=== PATIENT | male | born 1955 | race Caucasian/White ===

== ENCOUNTER 2019-09-28 12:19 | Inpatient (IN) | payer BC ==
[2019-09-28] MEDS ORDERED: Piperacillin/Tazobactam 4.5 GM VIAL ONE (13:27)
[2019-09-28 13:37] LABS: Lactic Acid 2.7 mmol/L (0.5-2.2)
[2019-09-28] MEDS ORDERED: Morphine 4 MG/ML VIAL ONE (14:08)
[2019-09-28] MEDS ORDERED: Ondansetron PF 4 MG/2 ML Vial ONE (14:08)
[2019-09-28] MEDS ORDERED: Acetaminophen 325 MG TAB PO PRN (15:55)
[2019-09-28] MEDS ORDERED: Ondansetron PF 4 MG/2 ML Vial IVP PRN ×2 (15:55→17:02)
[2019-09-28] MEDS ORDERED: Ondansetron ODT 4 MG TAB SL PRN (15:55)
[2019-09-28] MEDS ORDERED: Lactated Ringer's 1,000 ML IV SCH (16:00)
[2019-09-28 16:03] VITALS: BMI 32.4
[2019-09-28] MEDS ORDERED: Morphine 4 MG/ML VIAL SLOW IVP PRN (16:59)
--- NOTE | 2019-09-28 17:51 | HP ---
CHIEF COMPLAINT: Fever. HISTORY OF PRESENT ILLNESS: This is a 64-year-old male with history of tongue cancer treated with chemotherapy and radiation, esophageal cancer, hypothyroidism, GERD, peripheral vascular disease with few different surgeries on his legs, who presents to the [facility] Emergency Room yesterday with complaint of fevers, chills, abdominal and chest pain, nausea and vomiting. The patient reports that this was attributed to the flu-like illness, his flu test was negative and he was sent home. The symptoms continued overnight and he re-presented there today. He reports first onset was the night of September 23, where he had a fever to 101.3, associated with vomiting, fevers, and pain on his right side. He states that by the next day, it had resolved and had 2 days without any symptoms and then return of symptoms two nights ago. This time it has been persistent. His fevers have been up to 103 Fahrenheit. Today, he notes the onset of coughing and has had 2 episodes of small amounts of hemoptysis. He has had chest pain and difficulty breathing and last night, felt like he could not take a deep breath. He denies any prior history of this. Denies any travel. He has been taking ibuprofen at home to help with the fevers and body aches. The only other note is his urine has been dark and he had poor p.o. intake. In the emergency room at [facility] today, the patient was evaluated, had a lactic acid of 3.9, underwent a CT scan which by report shows a right lower lobe pneumonia, but no other abnormality in the abdomen or pelvis, this was based on CT abdomen and pelvis with contrast. He also had an ultrasound which shows a single small gallstone. There he received lactated Ringer's 2.6 L, morphine 4 mg, Zofran 4 mg, vancomycin 1.25 g, and transferred to this facility for further care. ALLERGIES: NO KNOWN DRUG ALLERGIES. CURRENT MEDICATIONS: Reconciled with pictures on patient's 's phone; 1. Levothyroxine 75 mcg daily. 2. Pantoprazole 40 mg b.i.d. PAST MEDICAL HISTORY: 1. Esophageal cancer treated by recurrent scrapings per the patient and his . 2. Cancer of the base of his tongue, treated with chemotherapy and radiation. 3. Peripheral vascular disease with surgery. 4. Anemia. 5. Hypothyroidism. PAST SURGICAL HISTORY: 1. Left femur fracture repair. 2. Esophageal recurrent scrapings for history of cancer. 3. Bypass to his legs followed by some other more advanced surgery for the peripheral vascular disease. SOCIAL HISTORY: The patient quit tobacco 25 years ago. Denies alcohol. Lives with his who is his surrogate decision maker and he is a full code. FAMILY HISTORY: Significant for a brother who has cancer, sister with tongue cancer, and a brother with throat cancer. REVIEW OF SYSTEMS: Positive for cough, chest pain, difficulty breathing, and other symptoms as noted above. Negative for any changes of skin. All remaining review of systems is reviewed and negative. PHYSICAL EXAMINATION: VITAL SIGNS: Blood pressure 106/62, temperature 103, pulse 112, respirations 24 , and saturation 92% on room air. GENERAL: Awake, alert, responsive, in no apparent distress. Does appear uncomfortable. Able to speak in full sentences. HEENT: Pupils are equal and round. No scleral icterus. Oral mucosa is pink and moist. NECK: Supple and nontender. LYMPHATICS: The patient has firmness along the left anterior cervical area that he reports is from radiation therapy. Unable to adequately assess for lymphadenopathy, no palpable lymphadenopathy on the right anterior cervical area. LUNGS: Decreased breath sounds at the bases, right greater than left. No audible wheezing or rhonchi. HEART: Normal S1, S2. Regular rate and rhythm. No significant murmur. ABDOMEN: Soft with present bowel sounds. Nontender. Nondistended. EXTREMITIES: No clubbing, cyanosis, or edema. SKIN: No visible rashes. NEURO: No gross deficits. PSYCH: Appears euthymic. VASCULAR: 2+ radial pulses. LABORATORY DATA: Reviewed from [facility], urinalysis shows trace blood, negative leukocyte esterase, negative nitrite, present protein. Metabolic panel; 134, 4.2, 99, 25, 25, 1.41, and 103. Calcium 9.7. Total bilirubin 3.2, alkaline phosphatase 104, AST 22, ALT 24, total protein 7.1 , albumin 3.8. CBC; 16.1, 14.4, 44.4, 202 with 78% neutrophils, 19% bands. Troponin negative. INR 1.4. CT abdomen and pelvis shows a right lower lobe pneumonia. This is with contrast right lower lobe pneumonia, otherwise no acute abnormality. Ultrasound shows a single small gallstone toward the gallbladder neck region, nonvisualization of the pancreas, no gallbladder wall thickening or pericholecystic fluid. IMPRESSION: 1. Sepsis secondary to pneumonia. 2. Cholelithiasis, uncertain if the patient is symptomatic from this. No evidence of acute cholecystitis. 3. Hemoptysis secondary to #1, by history, small amount. 4. History of tongue cancer, status post treatment, history of esophageal cancer status post treatment. 5. Peripheral vascular disease, asymptomatic. 6. Gastroesophageal reflux disease. 7. Hypothyroidism. PLAN: 1. Admission to the hospital. 2. We will continue IV fluids for now. Monitor intake and urine output. 3. Continuing broad-spectrum antibiotics, presumed that this community acquired narrow based on response to treatment. We will continue the vancomycin started in [place] with pharmacy to dose, Levaquin once daily, and Zosyn for pneumonia dosing. 4. Manage pain as well as fever. 5. Continue the levothyroxine at the current dose as well as b.i.d. PPI. 6. DVT prophylaxis with SCDs. Holding any pharmacologic DVT prophylaxis given the report of hemoptysis. 7. GI prophylaxis not indicated. The patient is already on a PPI. 8. Code status is full. Surrogate decision maker is the patient's . 9. The patient is at high risk given age, comorbidities, and current presentation. 10. Reviewed the plan of care with patient and his . No questions or further needs at the end of evaluation. Job ID: [id number] MTDD
[2019-09-28] MEDS: Piperacillin/Tazobactam 4.5 GM in Sodium Chloride 0.9% 100 ML IVPB SCH (18:41)
[2019-09-28] MEDS: Sodium Chloride 0.9% 1,000 ML IV SCH (18:41)
[2019-09-28] MEDS: HYDROcodone/Acetaminophen 5/325 mg Tablet PO PRN (20:33)
[2019-09-28] MEDS ORDERED: Vancomycin 1.5 GRAM/300 ML BAG 1.5 GM in Premix Bag 1 BAG IVPB SCH (21:00)
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
[2019-09-29] MEDS: Piperacillin/Tazobactam 4.5 GM in Sodium Chloride 0.9% 100 ML IVPB SCH ×4 (00:38→19:35)
[2019-09-29] MEDS: Vancomycin HCl 1 GM in Premix Bag 1 BAG IVPB SCH ×2 (00:39→13:11)
[2019-09-29] MEDS: Levothyroxine Sodium 75 MCG TAB PO SCH (05:15)
[2019-09-29] MEDS: Sodium Chloride 0.9% 1,000 ML IV SCH ×2 (05:15→19:35)
[2019-09-29 05:59] LABS: Phosphorus 2.5 mg/dL (2.3-4.7)
[2019-09-29 06:01] LABS: Anion Gap 11 mmol/L (10-20); BUN (Urea Nitrogen) 18 mg/dL (8.4-25.7); Calc. Creatinine Clearance 76 mL/min (70-130); Calcium 8.6 mg/dL (7.8-10.44); Carbon Dioxide 25 mmol/L (23-31); Chloride 102 mmol/L (98-107); Estimated GFR-MDRD 57; Glucose 105 mg/dL (80-115); Magnesium 1.9 mg/dL (1.6-2.6); Potassium 3.7 mmol/L (3.5-5.1); Sodium 134 mmol/L (136-145)
[2019-09-29 06:18] LABS: Band 21 % (5-11); Lymphocytes 8 % (21-51); MDiff Complete? YES; Mean Corpuscular HGB CONC 31.7 g/dL (32.0-36.0); Mean Corpuscular Hemoglobin 26.3 pg (27.0-31.0); Mean Platelet Volume 8.1 fL (7.4-10.4); Monocytes 4 % (0-10); Neutrophil 66 % (42-75); Platelet Count 146 thou/uL (130-400); RBC Distribution Width 12.8 % (11.5-14.5); Reactive Lymphocytes 1 % (0-10); Red Blood Cell (RBC) Count 4.56 mill/uL (4.70-6.10); White Blood Cell (WBC) Count 11.6 thou/uL (4.8-10.8)
[2019-09-29] MEDS: Acetaminophen 500 MG TAB PO PRN ×2 (06:29→16:39)
--- NOTE | 2019-09-29 09:00 | CT ---
CT CHEST WITH CONTRAST: History: Right lower lobe pneumonia. Comparison: None. Findings: Within the posterior segment right upper lobe is a spiculated nodule with peripheral pleural thickeni ng. This nodule measures up to 1.7 cm in size. There is dense consolidation in the right lower lobe with a few air bronchograms centrally. The enhancement of the right lower lobe parenchyma is relative ly homogeneous. Small right effusion. Abnormal right hilar lymph node measures up to 1.6 cm in size. Subcarinal lymph nodes measure up to 1 .3 cm in size. Medial peribronchial lymph node coronal image 88 measures 12 mm in short axis. Calcified granulomas in both lower lobes. Small volume consolidation posterior segment left lower lob e. Old right clavicular fracture. Old left anterior fourth rib fracture and fifth rib fracture and sixth rib fracture. No acute rib fracture. No acute thoracic spine fracture. Evidence of prior bowel surgery. Remainder of the upper abdomen is unremarkable. Impression: 1. Near-complete consolidation the right lower lobe with a few air bronchograms centrally and small r ight pleural effusion. No displacement of pulmonary vasculature. Given the lack of comparison examinations along with the extensive right hilar and subcarinal adenopathy, bronchoscopic evaluation is recommended. At a minimum, a followup CT of the chest in 1-2 months after treatment for pneumonia is recommended as underlying malignant process cannot be excluded. 2. Right upper lobe spiculated nodule with peripheral pleural cicatrization as described. This is con cerning for an underlying malignant process versus an area of scarring from the lack of comparison examinations. The history of pharyngeal mass does make this concerning for metastatic deposit. At a [facility], this can be evaluated on the follow-up chest CT in 1-2 months at the time of right lower lobe consolidation evaluation. Transcribed Date/Time: 09/29/2019 9:05 AM
--- NOTE | 2019-09-29 14:56 | PDOC.HOSPP ---
- Subjective Encounter Date: 09/29/19 Encounter Time: 14:50 Subjective: f/u for sepsis due to dense RLL PNA in context of pharyngeal/tongue carcinoma tx with chemo/XRT. Receiving Levaquin/Zosyn/Vancomycin. - Objective Vital Signs & Weight: Vital Signs (12 hours) Temp Pulse Resp BP Pulse Ox 09/29/19 11:33 98.2 F 78 20 102/69 95 09/29/19 08:00 93 L 09/29/19 07:40 98.2 F 78 20 100/64 93 L 09/29/19 04:06 97.9 F 81 18 96/63 93 L Weight Weight 200 lb 14.4 oz Result Diagrams: 09/29/19 05:08 09/29/19 05:08 Additional Labs: Laboratory Tests 09/28/19 09/28/19 09/29/19 12:57 19:10 05:08 Creatinine 1.32 H Lactic Acid 2.7 H Phosphorus Magnesium 1.9 09/29/19 05:08 Creatinine Lactic Acid Phosphorus 2.5 Magnesium Radiology Reviewed by me: Yes (CT chest - dense RLL consolidation, RUL spiculated region, + adenopathy) Hospitalist ROS - Medication Medications: Active Medications Generic Name Dose Route Start Last Admin Trade Name Freq PRN Reason Stop Dose Admin Acetaminophen 1,000 mg 09/28/19 19:10 09/29/19 06:29 Tylenol PO 1,000 mg Q6H PRN Administration Fever/Mild Pain Hydrocodone Bitart/Acetaminophen 1 tab 09/28/19 16:57 09/28/19 20:33 [place] 5/325 PO 1 tab Q4H PRN Administration Moderate Pain (4-6) Sodium Chloride 1,000 mls @ 75 mls/hr 09/28/19 17:00 09/29/19 05:15 Normal Saline 0.9% IV Not Given .[id number] SUN Piperacillin Sod/Tazobactam 100 mls @ 200 mls/hr 09/28/19 19:00 09/29/19 12: 32 Sod 4.5 gm/ Sodium Chloride IVPB 100 mls 0100,0700,1300,1900 SUN Administration Vancomycin HCl 1 gm/ Device 200 mls @ 200 mls/hr 09/29/19 01:00 09/29/19 13: 11 IVPB 200 mls 0100,1300 SUN Administration Levothyroxine Sodium 75 mcg 09/29/19 06:00 09/29/19 05:15 Synthroid PO 75 mcg 0600 SUN Administration Pantoprazole Sodium 40 mg 09/28/19 21:00 09/29/19 08:05 Protonix PO 40 mg BID SUN Administration - Exam General Appearance: NAD, awake alert Eye: PERRL, anicteric sclera ENT: normocephalic atraumatic, no oropharyngeal lesions Neck: supple, symmetric, no JVD, no thyromegaly Heart: RRR, no murmur, no gallops, no rubs Respiratory - other findings: diminished in R base, + rhonchi Gastrointestinal: soft, non-tender, non-distended, normal bowel sounds, no palpable masses Extremities: no cyanosis, no clubbing, no edema Skin: normal turgor, no lesions Neurological: cranial nerve grossly intact, no new deficit Musculoskeletal: normal tone, normal strength, no muscle wasting Psychiatric: normal affect, A&O x 3 Hosp A/P (1) Sepsis Code(s): A41.9 - SEPSIS, UNSPECIFIED ORGANISM Status: Acute Plan: Continue Zosyn/Vanc/Levaquin pending final cx results, continue IVF's (2) Bacterial pneumonia Code(s): J15.9 - UNSPECIFIED BACTERIAL PNEUMONIA Status: Acute Plan: Suspect grm + cocci, RLL involvement, Duonebs, O2 (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
[2019-09-29] MEDS ORDERED: Iopamidol-370 76% 500 ML 1 ML ONE (16:08)
[2019-09-30] MEDS: Piperacillin/Tazobactam 4.5 GM in Sodium Chloride 0.9% 100 ML IVPB SCH ×4 (00:29→18:00)
[2019-09-30] MEDS: HYDROcodone/Acetaminophen 5/325 mg Tablet PO PRN ×3 (00:33→20:35)
[2019-09-30 00:48] LABS: Vancomycin, Trough 12.1 ug/mL
[2019-09-30] MEDS: Vancomycin HCl 1 GM in Premix Bag 1 BAG IVPB SCH (01:03)
[2019-09-30] MEDS: Vancomycin HCl 1.25 GM in Sodium Chloride 0.9% 250 ML 250 ML IVPB SCH ×2 (01:27→12:53)
[2019-09-30] MEDS: Levothyroxine Sodium 75 MCG TAB PO SCH (05:21)
[2019-09-30 05:55] LABS: Anion Gap 11 mmol/L (10-20); BUN (Urea Nitrogen) 17 mg/dL (8.4-25.7); Calc. Creatinine Clearance 95 mL/min (70-130); Calcium 8.7 mg/dL (7.8-10.44); Carbon Dioxide 23 mmol/L (23-31); Chloride 106 mmol/L (98-107); Estimated GFR-MDRD 73; Glucose 90 mg/dL (80-115); Potassium 3.8 mmol/L (3.5-5.1); Sodium 136 mmol/L (136-145)
[2019-09-30 06:39] LABS: Hemoglobin 12.1 g/dL (14.0-18.0); Mean Corpuscular HGB CONC 32.7 g/dL (32.0-36.0); Mean Corpuscular Hemoglobin 27.4 pg (27.0-31.0); Mean Corpuscular Volume 83.7 fL (78.0-98.0); Mean Platelet Volume 8.5 fL (7.4-10.4); Platelet Count 157 thou/uL (130-400); Red Blood Cell (RBC) Count 4.41 mill/uL (4.70-6.10); White Blood Cell (WBC) Count 10.8 thou/uL (4.8-10.8)
[2019-09-30 07:14] LABS: Band 31 % (5-11); Lymphocytes 5 % (21-51); MDiff Complete? YES; Monocytes 3 % (0-10); Neutrophil 59 % (42-75); Platelet Morphology Comment Appears Adequate; RBC Morphology Normal; Reactive Lymphocytes 2 % (0-10)
--- NOTE | 2019-09-30 08:20 | PRG ---
DATE OF SERVICE: 09/29/2019 SUBJECTIVE: Mr. Henderson is a 64-year-old male, admitted to the hospital due to right upper quadrant pain. The patient was found out to have right lower lobe pneumonia and his fever is resolved with using IV antibiotics. OBJECTIVE: GENERAL: Currently, the patient is lying in bed comfortable with no acute respiratory distress. VITAL SIGNS: Afebrile. Vital signs stable. Cough is improved. Currently, General Surgery will sign off due to patient sustained lower lobe pneumonia with no signs of acute cholecystitis. The patient's condition improved with IV antibiotics. We recommend do culture and investigate the underlying cause of right lower lobe pneumonia. General Surgery will continue to follow along. If the patient's condition has changed please contact General Surgery Job ID: [id number] MTDD
[2019-09-30] MEDS: Sodium Chloride 0.9% 1,000 ML IV SCH ×2 (10:07→20:35)
[2019-09-30] MEDS: Acetaminophen 500 MG TAB PO PRN (14:50)
--- NOTE | 2019-09-30 15:55 | PDOC.HOSPP ---
- Subjective Encounter Date: 09/30/19 Encounter Time: 15:50 Subjective: f/u for sepsis secondary to RLL PNA on current Levaquin/Zosyn/Vancomycin. Feels better overall. - Objective Vital Signs & Weight: Vital Signs (12 hours) Temp Pulse Resp BP Pulse Ox 09/30/19 08:00 98.0 F 74 18 113/75 97 Weight Weight 200 lb 14.4 oz I&O: 09/29/19 09/30/19 10/01/19 06:59 06:59 06:59 Intake Total 980 Balance 980 Result Diagrams: 09/30/19 05:08 09/30/19 05:08 Additional Labs: Laboratory Tests 09/28/19 09/28/19 09/29/19 12:57 19:10 05:08 Creatinine 1.32 H Lactic Acid 2.7 H Phosphorus Magnesium 1.9 09/29/19 05:08 Creatinine Lactic Acid Phosphorus 2.5 Magnesium Hospitalist ROS - Medication Medications: Active Medications Generic Name Dose Route Start Last Admin Trade Name Freq PRN Reason Stop Dose Admin Acetaminophen 1,000 mg 09/28/19 19:10 09/30/19 14:50 Tylenol PO 1,000 mg Q6H PRN Administration Fever/Mild Pain Hydrocodone Bitart/Acetaminophen 1 tab 09/28/19 16:57 09/30/19 09:00 [place] 5/325 PO 1 tab Q4H PRN Administration Moderate Pain (4-6) Levofloxacin 750 mg/ Device 150 mls @ 100 mls/hr 09/29/19 14:00 09/30/19 14: 47 IVPB 150 mls 1400 SUN Administration Sodium Chloride 1,000 mls @ 75 mls/hr 09/28/19 17:00 09/30/19 10:07 Normal Saline 0.9% IV Not Given .[id number] SUN Piperacillin Sod/Tazobactam 100 mls @ 200 mls/hr 09/28/19 19:00 09/30/19 12: 53 Sod 4.5 gm/ Sodium Chloride IVPB 100 mls 0100,0700,1300,1900 SUN Administration Vancomycin HCl 1.25 gm/ Sodium 250 mls @ 166.667 mls/hr 09/30/19 01:00 12:53 Chloride IVPB 250 mls 0100,1300 SUN Administration Levothyroxine Sodium 75 mcg 09/29/19 06:00 09/30/19 05:21 Synthroid PO 75 mcg 0600 SUN Administration Ondansetron HCl 4 mg 09/28/19 17:02 09/30/19 00:32 Zofran IVP 4 mg Q6H PRN Administration Nausea/Vomiting Pantoprazole Sodium 40 mg 09/28/19 21:00 09/30/19 08:57 Protonix PO Not Given BID SUN - Exam General Appearance: NAD, awake alert Eye: PERRL, anicteric sclera ENT: normocephalic atraumatic, no oropharyngeal lesions Neck: supple, symmetric, no JVD, no thyromegaly Heart: RRR, no murmur, no gallops, no rubs Respiratory - other findings: Diminished in R base, coarse sounds R side Gastrointestinal: soft, non-tender, non-distended, normal bowel sounds Extremities: no cyanosis, no clubbing, no edema Skin: normal turgor, no lesions Neurological: cranial nerve grossly intact, no new deficit Musculoskeletal: normal tone, normal strength, no muscle wasting Psychiatric: normal affect, A&O x 3 Hosp A/P (1) Sepsis Code(s): A41.9 - SEPSIS, UNSPECIFIED ORGANISM Status: Acute Plan: Resolving, continue IV abx, sepsis due to PNA (2) Bacterial pneumonia Code(s): J15.9 - UNSPECIFIED BACTERIAL PNEUMONIA Status: Acute Plan: Continue Levaquin/Vanc/Zosyn (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
--- NOTE | 2019-09-30 20:20 | CON ---
DATE OF CONSULTATION: 09/30/2019 HISTORY OF PRESENT ILLNESS: Rancho Henderson is a pleasant 64-year-old male, who has a history of head and neck cancer. He apparently was seen by different healthcare providers recently with complaints of shaking chills, chest discomfort, upper abdominal discomfort, nausea, and vomiting. It was initially felt to probably be flu related. Prior to admission, he had a true temperature spiked over 101. He presented with a temp of 103. He also had right-sided pleuritic chest discomfort. Subsequently, he had imaging done showing alveolar infiltrate in his right lower lobe, subsequently was admitted. We were consulted. PAST MEDICAL HISTORY: Remarkable for: 1. Hypothyroidism, on replacement. 2. History of reflux disease. 3. History of cancer at the base of the tongue. 4. ? History of esophageal cancer. 5. History of peripheral vascular disease. 6. History of surgery for femur fracture. 7. History of peripheral vascular surgery. SOCIAL HISTORY: He had not smoked in 25 years. He does not drink. FAMILY HISTORY: There is a family history of cancer. No history of lung disease in early age. REVIEW OF SYSTEMS: Ten point review of systems completed, otherwise negative. He says he feels 100% better. PHYSICAL EXAMINATION: GENERAL: He is in no distress VITALS: afebrile, heart rate 76, respiratory rate 19, oximetry is 95%, blood pressure 157/99. HEENT: Unremarkable. He has no cervical lymphadenopathy. LUNGS: Clear with the exception of crackles at his right base. HEART: Regular rhythm. No S3. ABDOMEN: Soft and nontender. EXTREMITIES: Without clubbing, cyanosis, or edema. NEUROLOGICAL: Nonfocal. IMAGING STUDIES: Chest CT and chest x-ray have been reviewed. He does have findings consistent with an alveolar infiltrate at his right base. IMPRESSION AND PLAN: Pneumonia, likely postviral. Given his nausea and vomiting, there is a possibility that he aspirated with his vomiting. He does have a density in his right upper lobe and it is unclear whether or not this is new or not at this time since I do not have a past chest CT. At this point in time, the priority is treating his pneumonia. I do not feel that his right lower lobe infiltrate is postobstructive. Need to follow up chest x- ray in a month and follow up CT in probably 2 months and then some coordination with his oncologists if any abnormalities are persistent on his CT. TIME SPENT: This is a 70-minute consult, 50% of the time was spent on the unit coordinating care. I did talk to his by phone and answered all her questions. Job ID: [id number] KAVON
[2019-10-01] MEDS: Piperacillin/Tazobactam 4.5 GM in Sodium Chloride 0.9% 100 ML IVPB SCH ×2 (00:03→05:31)
[2019-10-01] MEDS ORDERED: Vancomycin HCl 1.25 GM in Sodium Chloride 0.9% 250 ML 250 ML IVPB SCH (03:00)
[2019-10-01] MEDS: Levothyroxine Sodium 75 MCG TAB PO SCH (05:30)
[2019-10-01 05:50] LABS: Band 12 % (5-11); Eosinophils 1 % (0-10); Hemoglobin 11.9 g/dL (14.0-18.0); Lymphocytes 6 % (21-51); MDiff Complete? YES; Mean Corpuscular HGB CONC 31.3 g/dL (32.0-36.0); Mean Corpuscular Hemoglobin 26.5 pg (27.0-31.0); Mean Corpuscular Volume 84.5 fL (78.0-98.0); Mean Platelet Volume 7.9 fL (7.4-10.4); Monocytes 8 % (0-10); Neutrophil 73 % (42-75); Platelet Count 189 thou/uL (130-400); RBC Distribution Width 13.1 % (11.5-14.5); Red Blood Cell (RBC) Count 4.51 mill/uL (4.70-6.10)
[2019-10-01] MEDS ORDERED: Amoxicillin/Potassium Clav 875 MG TAB PO SCH (09:00)
[2019-10-01] MEDS: Sodium Chloride 0.9% 1,000 ML IV SCH (15:44)
[2019-10-01 16:47] VITALS: BP 124/76; TEMP 98.7
--- NOTE | 2019-10-02 04:15 | DIS ---
DATE OF ADMISSION: 09/28/2019 DATE OF DISCHARGE: 10/01/2019 DISCHARGE DIAGNOSES: 1. Right lower lobe bacterial pneumonia, suspected gram-positive cocci. 2. Sepsis secondary to #1, resolved. 3. Pharyngeal carcinoma, chronic. 4. Hypothyroidism, stable. CONSULTATIONS: 1. Dr. Keane with Pulmonology Service. 2. Dr. Sellers with General Surgery Service. PERTINENT LABORATORY AND X-RAY FINDINGS: Sodium ranged between 134 to 136. Creatinine ranged between 1.03 to 1.32. Lactic acid level 2.7. Respiratory culture dated 09/29/2019 showed normal respiratory yue. CT of the chest dated 09/29/2019 showed near-complete consolidation in the right lower lobe with small right pleural effusion. Positive right hilar and subcarinal adenopathy. Right upper lobe spiculated nodule with peripheral pleural cicatrization. HOSPITAL COURSE: The patient was admitted to the medical floor after initially presenting with fever, cough, and shortness of breath. The patient underwent extensive evaluation including CT imaging of the abdomen and pelvis showing evidence of right lower lobe pneumonia. The patient was initially evaluated by the General Surgery Service after concern for potential cholecystitis; however, the patient's presentation is consistent with right lower lobe pneumonia with referred pain to the right upper quadrant. No specific intervention was recommended by the General Surgery Service. The patient received broad-spectrum IV antibiotic therapy with Levaquin and vancomycin. The patient clinically stabilized and improved with IV antibiotic therapy and general pulmonary supportive care with DuoNebs. The patient was evaluated by the Pulmonology Service due to questionable spiculated lesion in the right posterior upper lobe. Current recommendations at this time are to manage the infectious process and pneumonia with outpatient followup and repeat imaging. The patient overall remained clinically stable during the hospital course, tolerating regular oral intake with stable vital signs. I have examined the patient at the time of discharge and discussed followup instructions. The patient is stable and ready for discharge, 10/01/2019. DISCHARGE MEDICATIONS: 1. Augmentin 875 mg one tablet p.o. b.i.d. x10 days. 2. Protonix 40 mg p.o. b.i.d. 3. Levothyroxine 75 mcg p.o. daily. FOLLOWUP: The patient may follow up with Dr. Nerissa Tipton at [facility] in [place], [place], within 7 days of discharge. The patient may follow up with Dr. Catracho Keane and to call his office for appointment time and date. CONDITION ON DISCHARGE: Stable. ACTIVITY: Ad-blanca. DIET: Regular. CODE STATUS: Full. DISPOSITION: Home on 10/01/2019. Job ID: [id number]
== END 2019-10-01 17:25 | disposition home or self-care (01) | DRG 871 ==
LOC: ERS 12:19 → T4-B 15:29
PROVIDERS: ADMIT Emergency Medicine; ATTEND Family Medicine
DX: A41.9 Sepsis, unspecified organism (principal); J15.9 Unspecified bacterial pneumonia; R04.2 Hemoptysis; E03.9 Hypothyroidism, unspecified; K21.9 Gastro-esophageal reflux disease without esophagitis; I73.9 Peripheral vascular disease, unspecified; D64.9 Anemia, unspecified; K80.20 Calculus of gallbladder without cholecystitis without obstruction; I25.10 Atherosclerotic heart disease of native coronary artery without angina pectoris; C14.0 Malignant neoplasm of pharynx, unspecified; Z79.890 Hormone replacement therapy; Z79.899 Other long term (current) drug therapy; Z87.891 Personal history of nicotine dependence; Z85.01 Personal history of malignant neoplasm of esophagus; Z85.810 Personal history of malignant neoplasm of tongue
CPT/HCPCS: 36415; 71260; 80048; 80202; 82565; 83605; 83735; 84100; 85007; 85025; 85027; 87070; 87205; 88112; 93005; 96365; 96367; 96375; J1956; J2270; J2405; J2543; J3370; J3490; J7050; Q9967